=== PATIENT | female | born 1935 | race Caucasian/White ===

== ENCOUNTER → 2017-01-17 | Outpatient (CLI) | payer OTHER, MEDICARE ==
[~2017-01-17] VITALS: Ht 160 cm; Wt 77.1 kg
[2017-01-17 09:48] LABS: HEMATOCRIT 40.4 % (37.0-47.0); HEMOGLOBIN 13.3 gm/dL (12.0-15.0); MCH 29.9 pg (26.0-34.0); MCV 90.8 fL (80.0-100.0); RBC 4.45 mil/uL (4.20-5.00); RDW 15.2 % (10.5-14.5); WBC 4.7 thou/uL (4.0-11.0)
[2017-01-17 09:58] LABS: CALCIUM 8.8 mg/dL (8.5-10.1); CREATININE 0.8 mg/dL (0.6-1.0); POTASSIUM 3.9 mmol/L (3.5-5.1)
[2017-01-17 10:01] LABS: PROTIME 10.7 Seconds (9.3-11.4)
[2017-01-17 10:20] VITALS: BP 145/72
== END ==
LOC: EDSEX → SPEC 07:09
PROVIDERS: Radiology Diagnostic Radiology
DX: S22.080A Wedge compression fracture of T11-T12 vertebra, initial encounter for closed fracture (principal); M54.9 Dorsalgia, unspecified; E03.9 Hypothyroidism, unspecified; F41.8 Other specified anxiety disorders; E66.09 Other obesity due to excess calories; M17.11 Unilateral primary osteoarthritis, right knee; Z98.890 Other specified postprocedural states; Z87.891 Personal history of nicotine dependence; X58.XXXA Exposure to other specified factors, initial encounter; Y93.89 Activity, other specified; Y92.89 Other specified places as the place of occurrence of the external cause; Y99.8 Other external cause status